=== PATIENT | male | born 1975 | race Two or more races ===

== ENCOUNTER 2024-05-15 23:47 | Inpatient (IN) | payer OTHER ==
[~2024-05-15] VITALS: Ht 180.3 cm; Wt 90.7 kg
[2024-05-16] MEDS ORDERED: FAMOTIDINE/PF 20 MG in 0.9 % SODIUM CHLORIDE 8 ML IV PUSH STA (00:52)
[2024-05-16] MEDS ORDERED: 0.9 % SODIUM CHLORIDE 1,000 ML IV SCH ×2 (01:00→16:00)
[2024-05-16] MEDS ORDERED: ONDANSETRON HCL 2 MG/ML VIAL IV ONE (01:00)
[2024-05-16] MEDS ORDERED: KETOROLAC TROMETHAMINE 30 MG VIAL IV ONE (01:00)
[2024-05-16 01:51] LABS: HEMOGLOBIN 14.7 g/dL (13-16.00); MEAN CELL VOLUME 89.2 fL (80.0-100.00); MEAN CORPUSCULAR HEMOGLOBIN 30.5 pg (27.00-32.0); MEAN CORPUSCULAR HGB CONC 34.3 g/dl (32.0-36.0); PLATELET COUNT 253 K/uL (150-450); RED BLOOD COUNT 4.83 M/uL (4.00-6.00); RED CELL DISTRIBUTION WIDTH 13.3 % (11.5-14.5)
[2024-05-16 02:10] LABS: ALBUMIN 3.3 gm/dL (3.4-5.0); BILIRUBIN TOTAL 1.75 mg/dL (0.3-1.2); BILIRUBIN,CONJUGATED 0.47 mg/dL (0.0-0.2); BILIRUBIN,UNCONJUGATED 1.28 mg/dL (0.0-0.6); CALCIUM 8.3 mg/dL (8.5-10.1); CREATININE SERUM 0.8 mg/dL (0.70-1.30); GFR 103.62; POTASSIUM 3.33 mEq/L (3.5-5.1); TOTAL PROTEIN 7.3 gm/dL (6.4-8.2)
[2024-05-16 05:18] LABS: HEMOGLOBIN 13.7 g/dL (13-16.00); MEAN CELL VOLUME 89.6 fL (80.0-100.00); MEAN CORPUSCULAR HEMOGLOBIN 30.7 pg (27.00-32.0); MEAN CORPUSCULAR HGB CONC 34.3 g/dl (32.0-36.0); PLATELET COUNT 228 K/uL (150-450); RED BLOOD COUNT 4.46 M/uL (4.00-6.00); RED CELL DISTRIBUTION WIDTH 13.5 % (11.5-14.5)
[2024-05-16] MEDS ORDERED: PIPERACILLIN/TAZOBACTAM SODIUM 3.375 GM VIAL IV ONE (05:30)
[2024-05-16] MEDS ORDERED: PIPERACILLIN/TAZOBACTAM SODIUM 3.375 GM VIAL IV SCH (12:00)
[2024-05-16] MEDS ORDERED: PIPERACILLIN/TAZOBACTAM SODIUM 3.375 GM in 0.9 % SODIUM CHLORIDE 100 ML IV SCH (15:59)
[2024-05-16] MEDS ORDERED: POTASSIUM CHLORIDE/NACL 0.9% 1,000 ML IV ONE (16:00)
[2024-05-16] MEDS ORDERED: MORPHINE SULFATE 4 MG/ML CARTRIDGE IV PRN (16:30)
[2024-05-16 16:31] VITALS: BP 105/63; O2SAT 96
[2024-05-16] MEDS ORDERED: FAMOTIDINE/PF 20 MG in 0.9 % SODIUM CHLORIDE 100 ML IV SCH (17:00)
[2024-05-16 17:52] LABS: INR 1.19; PARTIAL THROMBOPLASTIN TIME 30.2 SECONDS (22.0-34.0); PROTHROMBIN TIME 12.8 SECONDS (9.0-11.5)
[2024-05-16 18:24] VITALS: BP 123/79; O2SAT 95
[2024-05-17 00:48] VITALS: BP 117/81; O2SAT 98
[2024-05-17 16:00] VITALS: BP 114/72; O2SAT 95
[2024-05-18 00:33] VITALS: BP 126/80; O2SAT 94
[2024-05-18 06:43] LABS: HEMATOCRIT 36.3 % (39.0-48.0); HEMOGLOBIN 12.6 g/dL (13-16.00); MEAN CELL VOLUME 88.4 fL (80.0-100.00); MEAN CORPUSCULAR HEMOGLOBIN 30.7 pg (27.00-32.0); MEAN CORPUSCULAR HGB CONC 34.7 g/dl (32.0-36.0); PLATELET COUNT 241 K/uL (150-450); RED CELL DISTRIBUTION WIDTH 13.9 % (11.5-14.5)
[2024-05-18 07:17] LABS: ALBUMIN 2.4 gm/dL (3.4-5.0); BILIRUBIN TOTAL 1.17 mg/dL (0.3-1.2); CALCIUM 8.3 mg/dL (8.5-10.1); CREATININE SERUM 0.58 mg/dL (0.70-1.30); GFR 150.18; GLOBULINA 3.5 G/DL (2.4-3.5); POTASSIUM 3.77 mEq/L (3.5-5.1); TOTAL PROTEIN 5.9 gm/dL (6.4-8.2)
[2024-05-18 08:00] VITALS: BP 127/73; O2SAT 96
[2024-05-18 11:19] LABS: HEMATOCRIT 37.6 % (39.0-48.0); HEMOGLOBIN 12.8 g/dL (13-16.00); MEAN CELL VOLUME 90.2 fL (80.0-100.00); MEAN CORPUSCULAR HEMOGLOBIN 30.6 pg (27.00-32.0); PLATELET COUNT 251 K/uL (150-450); RED BLOOD COUNT 4.17 M/uL (4.00-6.00); RED CELL DISTRIBUTION WIDTH 13.7 % (11.5-14.5)
[2024-05-18] MEDS ORDERED: KETOROLAC TROMETHAMINE 30 MG VIAL IV PRN (20:30)
[2024-05-18] MEDS ORDERED: ONDANSETRON HCL 2 MG/ML VIAL IV PRN ×2 (20:30)
[2024-05-19 00:34] VITALS: BP 154/82; O2SAT 98
[2024-05-19 06:58] LABS: HEMOGLOBIN 13.5 g/dL (13-16.00); MEAN CORPUSCULAR HEMOGLOBIN 31.2 pg (27.00-32.0); MEAN CORPUSCULAR HGB CONC 34.7 g/dl (32.0-36.0); PLATELET COUNT 287 K/uL (150-450); RED BLOOD COUNT 4.34 M/uL (4.00-6.00); RED CELL DISTRIBUTION WIDTH 14.1 % (11.5-14.5)
[2024-05-19 07:20] LABS: ALBUMIN 2.5 gm/dL (3.4-5.0); BILIRUBIN TOTAL 0.84 mg/dL (0.3-1.2); CALCIUM 8.2 mg/dL (8.5-10.1); CREATININE SERUM 0.57 mg/dL (0.70-1.30); GFR 153.22; GLOBULINA 3.7 G/DL (2.4-3.5); POTASSIUM 3.71 mEq/L (3.5-5.1); TOTAL PROTEIN 6.2 gm/dL (6.4-8.2)
[2024-05-19 10:19] VITALS: BP 139/80; O2SAT 90
[2024-05-19] MEDS ORDERED: AMLODIPINE BESYLATE 2.5 MG TABLET PO SCH (12:53)
[2024-05-19 16:48] VITALS: BP 129/86; O2SAT 98
[2024-05-20 00:46] VITALS: BP 130/87; O2SAT 99
[2024-05-20 06:17] LABS: MEAN CELL VOLUME 89.7 fL (80.0-100.00); MEAN CORPUSCULAR HEMOGLOBIN 30.8 pg (27.00-32.0); MEAN CORPUSCULAR HGB CONC 34.3 g/dl (32.0-36.0); PLATELET COUNT 257 K/uL (150-450); RED BLOOD COUNT 3.91 M/uL (4.00-6.00); RED CELL DISTRIBUTION WIDTH 13.6 % (11.5-14.5)
[2024-05-20 06:35] LABS: ALBUMIN 2.1 gm/dL (3.4-5.0); BILIRUBIN TOTAL 0.97 mg/dL (0.3-1.2); CALCIUM 7.7 mg/dL (8.5-10.1); CREATININE SERUM 0.61 mg/dL (0.70-1.30); GFR 141.69; POTASSIUM 3.33 mEq/L (3.5-5.1); TOTAL PROTEIN 5.1 gm/dL (6.4-8.2)
[2024-05-20 08:00] VITALS: BP 137/83; O2SAT 97
[2024-05-20] MEDS ORDERED: POTASSIUM CHLORIDE 20MEQ/100ML H2O PB IV NR (08:30)
[2024-05-20 16:00] VITALS: BP 152/92; O2SAT 95
[2024-05-21 01:51] VITALS: BP 147/82; O2SAT 97
[2024-05-21 08:00] VITALS: BP 137/80; O2SAT 95
[2024-05-21 08:51] LABS: HEMATOCRIT 38.8 % (39.0-48.0); HEMOGLOBIN 13.4 g/dL (13-16.00); MEAN CELL VOLUME 88.2 fL (80.0-100.00); MEAN CORPUSCULAR HEMOGLOBIN 30.6 pg (27.00-32.0); MEAN CORPUSCULAR HGB CONC 34.7 g/dl (32.0-36.0); PLATELET COUNT 347 K/uL (150-450); RED BLOOD COUNT 4.39 M/uL (4.00-6.00); RED CELL DISTRIBUTION WIDTH 13.9 % (11.5-14.5)
[2024-05-21 10:01] LABS: ALBUMIN 2.7 gm/dL (3.4-5.0); BILIRUBIN TOTAL 0.91 mg/dL (0.3-1.2); CALCIUM 8.9 mg/dL (8.5-10.1); CREATININE SERUM 0.76 mg/dL (0.70-1.30); GFR 109.94; POTASSIUM 4.04 mEq/L (3.5-5.1); TOTAL PROTEIN 6.7 gm/dL (6.4-8.2)
[2024-05-21] MEDS ORDERED: FAMOtidine 20 MG TABLET PO SCH (17:00)
[2024-05-22] MEDS ORDERED: AMLODIPINE BESYLATE 5 MG TABLET PO SCH (09:00)
== END 2024-05-21 13:57 | disposition home or self-care (01) | DRG 417 ==
LOC: ER 23:48 → SURH 05-16 16:23
PROVIDERS: General Practice; Surgery; ADMIT Internal Medicine; ATTEND Internal Medicine
PROC: BW40ZZZ Ultrasonography of Abdomen (ICD-10-PCS; 2024-05-16)
PROC: BF37ZZZ Magnetic Resonance Imaging (MRI) of Pancreas (ICD-10-PCS; 2024-05-17)
PROC: 0WQF4ZZ Repair Abdominal Wall, Percutaneous Endoscopic Approach (ICD-10-PCS; 2024-05-18)
PROC: 0FT44ZZ Resection of Gallbladder, Percutaneous Endoscopic Approach (ICD-10-PCS; principal; 2024-05-18 16:00)
DX: K80.00 Calculus of gallbladder with acute cholecystitis without obstruction (principal); K65.8 Other peritonitis; K90.49 Malabsorption due to intolerance, not elsewhere classified; K82.A1 Gangrene of gallbladder in cholecystitis; E87.6 Hypokalemia; K43.9 Ventral hernia without obstruction or gangrene; I10 Essential (primary) hypertension